=== PATIENT | male | born 1980 | race Caucasian/White ===

== ENCOUNTER 2017-01-14 20:11 | Emergency (ER) | payer BC ==
[2017-01-14] MEDS ORDERED: Acetaminophen/oxyCODONE 325-5 MG Tab PO ONE (20:35)
--- NOTE | 2017-01-14 21:49 | EDM.PDOC ---
ED HPI GENERAL MEDICAL PROBLEM - General Chief Complaint: General Stated Complaint: Left thumb injury Time Seen by Provider: 01/14/17 20:13 Source of Information: Reports: Patient History Limitations: Reports: No Limitations - History of Present Illness INITIAL COMMENTS - FREE TEXT/NARRATIVE: Patient was using axe when he somehow managed to make contact with dorsal aspect of left thumb when axe slipped. Denies numbness/tingling or loss of function. Able to flex and extend all fingers of left hand. Wrist is fully mobile. Has very mild superficial laceration medial proximal index finger where axe also made contact. Denies other injuries. Tetanus is UTD. Patient placed series of bandages around wound to help with bleeding. Location: Reports: Upper Extremity, Left Left 1-Thumb Pain Score (Numeric/FACES): 9 - Related Data Allergies Allergy/AdvReac Type Severity Reaction Status Date / Time No Known Allergies Allergy Verified 04/18/16 22:05 Past Medical History - Past Health History Medical/Surgical History: Denies Medical/Surgical History Psychiatric History: Reports: Addiction, Anxiety, Depression, Other (See Below) Other Psychiatric History: pt states takes effexor but will not state why he takes med, very aggitated at this time Social & Family History - Family History Family Medical History: Noncontributory - Tobacco Use Smoking Status *Q: Current Every Day Smoker Years of Tobacco use: 5 Packs/Tins Daily: 0.5 Second Hand Smoke Exposure: No - Caffeine Use Caffeine Use: Reports: Soda - Alcohol Use Alcohol Use Comment: Currently abstaining from alcohol. Denies use. - Recreational Drug Use Recreational Drug Use: No Recreational Drug Type: Reports: Other (see below) Other Recreational Drug Type: hydrocodone and gabapentin ED ROS GENERAL - Review of Systems Review Of Systems: ROS reveals no pertinent complaints other than HPI. ED EXAM, GENERAL - Physical Exam Exam: See Below Exam Limited By: No Limitations General Appearance: Alert, WD/WN, No Apparent Distress Eye Exam: Bilateral Eye: EOMI, PERRL Head: Atraumatic, Normocephalic Neck: Supple Respiratory/Chest: No Respiratory Distress Peripheral Pulses: 2+: Radial (L), Radial (R) Extremities: Normal Capillary Refill, Other (laceration noted dorsal left thumb base.) Neurological: Alert, Oriented, Normal Cognition, Normal Gait, No Motor/Sensory Deficits Psychiatric: Anxious Skin Exam: Warm, Dry, Other (3cm laceration dorsal left thumb full thickness. No active bleeding noted. No hematoma. Very superficial 3cm laceration medial index finger noted also. Full tendon function. Sensation intact. ) ED GENERAL MEDICAL PROCEDURES - Laceration/Wound Repair Left Proximal Dorsal Finger Lac/wound length in cm: 3 Appearance: Subcutaneous, Linear, Clean Distal NVT: Neuro & Vascular Intact, No Tendon Injury Anesthetic Type: Local Local Anesthesia - Lidocaine (Xylocaine): 1% Plain Local Anesthetic Volume: 4cc Skin Prep: Saline Exploration/Debridement/Repair: Wound Explored, Explored to Base, No Foreign Material Found, Other (minor small vessel oozing noted) Closed with: Sutures Suture Size: 3-0 # of Sutures: 4 Suture Type: Nylon, Interrupted Sterile Dressing Applied: Nurse Tetanus Status Addressed: Yes Complications: No Course - Vital Signs Last Recorded V/S: Last Vital Signs Temp 37.1 C 01/14/17 20:20 Pulse 120 H 01/14/17 22:00 Resp 20 01/14/17 22:00 BP 136/89 01/14/17 22:00 Pulse Ox 100 01/14/17 22:00 - Orders/Labs/Meds Orders: Active Orders 24 hr Category Date Time Status Hand Comp Min 3V Lt [CR] Stat Exams 01/14/17 20:14 Taken Meds: Medications Discontinued Medications Generic Name Dose Route Start Last Admin Trade Name Amy PRN Reason Stop Dose Admin Lidocaine HCl Confirm 01/14/17 21:14 Xylocaine-Mpf 1% Administered 01/14/17 21:15 Dose 10 ml .ROUTE .STK-MED ONE Oxycodone/Acetaminophen 2 tab 01/14/17 20:35 01/14/17 20:40 Percocet 325-5 Mg PO 01/14/17 20:36 2 tab ONETIME ONE Administration - Radiology Interpretation Free Text/Narrative:: xray left hand showed no obvious bony involvement with injury - Re-Assessments/Exams Free Text/Narrative Re-Assessment/Exam: 01/14/17 21:54 Patient very anxious when he first arrived. Elevated pulse, RR, BP noted. Laceration repaired. Pressure bandage applied. PO Percocet given earlier in stay. Will give patient work excuse for [employer] tonight. He is to follow up as needed if there are any problems, otherwise sutures to be removed in one week. Precautions reviewed prior to discharge. Patient was told he would need ride home due to Percocet that was given. He said his would be available. Free Text/Narrative Re-Assessment/Exam: 01/14/17 22:09 Vital signs rechecked. Pulse still elevated. BP and RR improved. Patient volunteered that he has been having some baseline issues with anxiety/ depression recently and has appointment to see Davidson Aguilera on Saturday for this. Given his injury and trip to the ER, suspect that it is part of the reason that these things were elevated tonight. Discussed having his vital signs taken a few times over the next few weeks to look for trends, and to discuss planning with Davidson this week. Departure - Departure Time of Disposition: 22:05 Disposition: Home, Self-Care 01 Condition: Good Clinical Impression: Anxiety Hand laceration Qualifiers: Encounter type: initial encounter Foreign body presence: without foreign body Laterality: left Qualified Code(s): S61.412A - Laceration without foreign body of left hand, initial encounter - Discharge Information Instructions: Laceration Care, Adult, [id number] Referrals: Davidson Aguilera PA [Primary Care Provider] - Forms: ED Department Discharge Additional Instructions: Keep wound clean and dry while it heals. OK to use topical antibiotic ointment several times a day to help avoid infection. Follow up for suture removal next Saturday. Follow up otherwise if you have other problems, such as bleeding or signs of infection. OK to use Tylenol or Ibuprofen or Aleve for pain. Have BP/pulse rechecked on Saturday when you are at your appointment with your primary provide.r - My Orders Last 24 Hours: My Active Orders 01/14/17 20:14 Hand Comp Min 3V Lt [CR] Stat - Assessment/Plan Last 24 Hours: My Active Orders 01/14/17 20:14 Hand Comp Min 3V Lt [CR] Stat
[2017-01-14 22:01] VITALS: BP 136/89
== END 2017-01-14 22:15 | disposition home or self-care (01) ==
LOC: LL.ED 20:11
DX: S61.012A Laceration without foreign body of left thumb without damage to nail, initial encounter (principal); S61.211A Laceration without foreign body of left index finger without damage to nail, initial encounter; F41.9 Anxiety disorder, unspecified; F17.210 Nicotine dependence, cigarettes, uncomplicated; W26.8XXA Contact with other sharp object(s), not elsewhere classified, initial encounter
CPT/HCPCS: 12002; 73130; 99283; A9270

== ENCOUNTER 2017-07-16 03:25 | Emergency (ER) | payer BC ==
[2017-07-16 06:32] LABS: CHLORIDE,CL 102 mmol/L (98-107); SODIUM,NA 139 mmol/L (136-145)
--- NOTE | 2017-07-16 09:45 | EDM.PDOC ---
ED HPI GENERAL MEDICAL PROBLEM - General Chief Complaint: Neurological Problem Stated Complaint: confusion Time Seen by Provider: 07/16/17 03:45 Source of Information: Reports: Patient, Family (, Ivette), Old Records ( [facility] chart/EMR) History Limitations: Reports: Altered Mental Status - History of Present Illness INITIAL COMMENTS - FREE TEXT/NARRATIVE: The patient was brought to the emergency room via transport vehicle from [facility] for evaluation of nonspecific confusion with symptoms starting at about midnight this evening. The patient is an extremely poor historian secondary to his current confusion and probable psychosis with majority of history taken from Georgi Taylor, industrial safety and health technician from [facility], Randal Lundy, shift boss , and Lance Montanez, security attendant from [facility]. By patient history last well normal mental status at about 21:00 hours this evening. 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 His coworkers and supervisors could not find the patient till about 3 AM. Patient does complain of nonspecific left 2/10 temporal and frontal headaches with questionable history of minor fall with possible mild left hip and head contusion, however patient is not certain of this event. He apparently had similar type symptoms about one year ago with history of previous inpatient treatment for substance abuse as below. The patient has also been noncompliant with his Effexor and has been taking this only on a when necessary basis. He denies any recent alcohol or illicit drug use, although he has had some increasing stressors at home and is afraid that his may leave him. No history of recent visual changes, diplopia, or other change in neurological status. The patient denies any chest pain/pressure, heart flutter, dizziness, orthostasis, orthopnea, diaphoresis, paresthesias, recent decreased exercise tolerance, or any other anginal-type symptoms. No recent history of abdominal pain, heartburn, nausea, diarrhea, melena, gross hematochezia, or any food intolerance, including fatty foods, etc.. The patient also denies any recent fever, cough, wheezing, dyspnea, etc.. He also denies any recent history of UTI symptoms, hematuria, colic, etc. Onset: Gradual Onset Date: 07/15/17 Onset Time: 21:00 Duration: Constant, Improving Location: Reports: Head, Lower Extremity, Left. Denies: Face, Neck, Chest, Abdomen, Back, Pelvis, Upper Extremity, Left, Upper Extremity, Right, Lower Extremity, Right, Radiates to Quality: Reports: Ache, Same as Previous Episode Severity: Mild Improves with: Reports: None Worsens with: Reports: None Context: Reports: Other (As above) Associated Symptoms: Reports: Confusion. Denies: Chest Pain, Cough, Diaphoresis , Fever/Chills, Headaches, Loss of Appetite, Malaise, Nausea/Vomiting, Seizure, Shortness of Breath, Syncope, Weakness Treatments STRATEGIC PROCUREMENT MANAGER: Reports: Other (see below) (None) Left Headache Pain Score (Numeric/FACES): 2 - Related Data Allergies Allergy/AdvReac Type Severity Reaction Status Date / Time No Known Allergies Allergy Verified 04/18/16 22:05 Past Medical History Musculoskeletal History: Reports: Fracture, Other (See Below) Other Musculoskeletal History: Tuft fracture of digit #4 of the left hand on 06/27 Psychiatric History: Reports: Addiction, Anxiety, Depression, Emotional Problems , Psych Hospitalization(s), Other (See Below) Other Psychiatric History: Previous history of alcohol, Ativan, and Xanax abuse as below. History of alcohol abuse since 2002 with apparent previous treatments including last known inpatient treatment for alcohol abuse and his anxiety depressive disorder at [facility] in the fall of 2016. Previous problems with anger management. Social & Family History - Family History Family Medical History: Noncontributory - Tobacco Use Smoking Status *Q: Current Every Day Smoker Tobacco Use Within Last Twelve Months: Snuff/Dip Years of Tobacco use: 21 Packs/Tins Daily: 0.5 Packs/Tins Daily Comment: Started using chewing tobacco at age 16 with only occasional cigarette use when drinking Used Tobacco, but Quit: No - Caffeine Use Caffeine Use: Reports: Soda - Alcohol Use Alcohol Use History: Yes Days Per Week of Alcohol Use: 0 Number of Drinks Per Day Comment: History of alcohol abuse and treatment as above Alcohol Use in Last Twelve Months: Yes - Recreational Drug Use Recreational Drug Use: Yes Drug Use in Last 12 Months: No Recreational Drug Type: Reports: Ativan, Xanax. 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 ED EXAM, GENERAL - Physical Exam Exam: See Below Exam Limited By: No Limitations General Appearance: Alert, No Apparent Distress, Anxious (Moderate to severe anxiety initially on arrival by nurses history with only mild anxiety present at time of my arrival) Eye Exam: Bilateral Eye: EOMI, Normal Fundi, Normal Inspection (No nystagmus), Periorbital Changes Ears: Normal External Exam, Normal Canal, Hearing Grossly Normal, Normal TMs Nose: Normal Inspection, Normal Mucosa, No Blood Throat/Mouth: Normal Inspection, Normal Lips, Normal Teeth, Normal Gums, Normal Oropharynx, Normal Voice, No Airway Compromise. No: Dysphagia, Perioral Cyanosis Head: Atraumatic, Normocephalic. No: Facial Swelling, Facial Tenderness ( Including left temporal region), Sinus Tenderness Neck: Normal Inspection, Supple, Non-Tender, Full Range of Motion. No: Lymphadenopathy (L), Lymphadenopathy (R), Thyromegaly Respiratory/Chest: No Respiratory Distress, Lungs Clear, Normal Breath Sounds, No Accessory Muscle Use, Chest Non-Tender. No: Pleural Rub, Retractions Cardiovascular: Normal Peripheral Pulses, Regular Rate, Rhythm, No Edema, No Gallop, No JVD, No Murmur, No Rub. No: Gallop/S3, Gallop/S4, Friction Rub Peripheral Pulses: 2+: Radial (L), Radial (R) GI/Abdominal: Normal Bowel Sounds, Soft, Non-Tender, No Organomegaly, No Distention, No Abnormal Bruit, No Mass, Pelvis Stable. No: Guarding (Male) Exam: Deferred Rectal (Males) Exam: Deferred Back Exam: Normal Inspection, Full Range of Motion. No: CVA Tenderness (L), CVA Tenderness (R), Muscle Spasm Extremities: Normal Inspection, Normal Range of Motion, Non-Tender, No Pedal Edema, Normal Capillary Refill. No: Edmond's Sign, Leg Pain (Including left hip) Neurological: Alert, CN II-XII Intact, Normal Cognition, Normal Gait, Normal Reflexes (Negative Babinski's, finger to nose, and pronator rotation tests. No evidence of facial paresis, tongue deviation, orthostasis, etc.. Excellent reverse thought processes.), No Motor/Sensory Deficits, Confused (Slowly improving during emergency room evaluation moderate confusion and borderline psychosis), Disoriented (Oriented 2 with date inaccurate at 07/13/17) Psychiatric: Anxious (Moderate as above), Depressed Mood (Moderate with adequate eye contact and no evidence of suicidal or homicidal ideation). No: Flat Affect, Tearful Skin Exam: Warm, Dry, Intact, Normal Color, No Rash. No: Diaphoretic, Jaundice , Pallor, Wound/Incision Lymphatic: No Adenopathy Course - Vital Signs Last Recorded V/S: See written emergency room record - Orders/Labs/Meds Orders: Active Orders 24 hr Category Date Time Status Head wo Cont [CT] Routine Exams 07/16/17 04:00 Taken CULTURE URINE [RM] Stat Lab 07/16/17 04:15 Received Labs: Laboratory Tests 07/16/17 07/16/17 07/16/17 Range/Units 04:15 04:15 04:15 WBC 9.8 (4.0-10.2) K/uL RBC 4.62 (4.33-5.41) M/uL Hgb 14.9 D (13.1-16.8) g/dL Hct 44.0 (39.0-49.0) % MCV 95.2 (84.0-98.0) fL MCH 32.3 (28.2-33.3) pg MCHC 33.9 (31.7-36.0) g/dL RDW 12.2 (11.2-14.1) % Plt Count 266 D (150-350) K/uL Neut % (Auto) 72.5 (45.0-80.0) % Lymph % (Auto) 17.9 (10.0-50.0) % [place] % (Auto) 8.8 (2.0-14.0) % Eos % (Auto) 0.5 (0.0-5.0) % Baso % (Auto) 0.3 (0.0-2.0) % Neut # (Auto) 7.08 H (1.40-7.00) K/uL Lymph # (Auto) 1.75 (0.50-3.50) K/uL [place] # (Auto) 0.86 (0.00-1.00) K/uL Eos # (Auto) 0.05 (0.00-0.50) K/uL Baso # (Auto) 0.03 (0.00-0.20) K/uL Sodium 139 (136-145) mmol/L Potassium 3.6 (3.5-5.1) mmol/L Chloride 102 (98-107) mmol/L Carbon Dioxide 26.6 (21.0-32.0) mmol/L BUN 10 (7-18) mg/dL Creatinine 1.05 (0.51-1.17) mg/dL Est Cr Clr Drug Dosing TNP Estimated GFR (MDRD) > 60 mL/min Glucose 108 H (74-106) mg/dL Lactic Acid 0.6 (0.4-2.0) mmol/L Calcium 9.2 (8.5-10.1) mg/dL Total Bilirubin 0.5 (0.2-1.0) mg/dL AST 26 (15-37) U/L ALT 42 (12-78) U/L Alkaline Phosphatase 78 (46-116) IU/L Total Protein 8.4 H (6.4-8.2) g/dL Albumin 4.5 (3.4-5.0) g/dL TSH, Ultra Sensitive 4.445 H (0.358-3.740) mIU/mL Specimen Type Urine Color Urine Appearance Urine pH (5.0-9.0) Ur Specific [place] (1.005-1.030) Urine Protein (NEGATIVE) mg/dL Urine Glucose (UA) (NEGATIVE) mg/dL Urine Ketones (NEGATIVE) mg/dL Urine Occult Blood (NEGATIVE) Urine Nitrite (NEGATIVE) Urine Bilirubin (NEGATIVE) Urine Urobilinogen (0.2-1.0) E.U./dL Ur Leukocyte Esterase (NEGATIVE) Urine RBC /HPF Urine WBC /HPF Ur Epithelial Cells /LPF Urine Bacteria (NONE TO FEW) /HPF Urine Opiates Screen (NEGATIVE) Urine Methadone Screen (NEGATIVE) U Acetaminophen Screen (NEGATIVE) Ur Barbiturates Screen (NEGATIVE) Ur Tricyclics Screen (NEGATIVE) Ur Phencyclidine Scrn (NEGATIVE) Ur Amphetamine Screen (NEGATIVE) U Methamphetamines Scrn (NEGATIVE) U Benzodiazepines Scrn (NEGATIVE) U Cocaine Metab Screen (NEGATIVE) U Marijuana (THC) Screen (NEGATIVE) Ethyl Alcohol 0.000 (0.000-0.080) g/dL 07/16/17 07/16/17 Range/Units 04:15 04:15 WBC (4.0-10.2) K/uL RBC (4.33-5.41) M/uL Hgb (13.1-16.8) g/dL Hct (39.0-49.0) % MCV (84.0-98.0) fL MCH (28.2-33.3) pg MCHC (31.7-36.0) g/dL RDW (11.2-14.1) % Plt Count (150-350) K/uL Neut % (Auto) (45.0-80.0) % Lymph % (Auto) (10.0-50.0) % [place] % (Auto) (2.0-14.0) % Eos % (Auto) (0.0-5.0) % Baso % (Auto) (0.0-2.0) % Neut # (Auto) (1.40-7.00) K/uL Lymph # (Auto) (0.50-3.50) K/uL [place] # (Auto) (0.00-1.00) K/uL Eos # (Auto) (0.00-0.50) K/uL Baso # (Auto) (0.00-0.20) K/uL Sodium (136-145) mmol/L Potassium (3.5-5.1) mmol/L Chloride (98-107) mmol/L Carbon Dioxide (21.0-32.0) mmol/L BUN (7-18) mg/dL Creatinine (0.51-1.17) mg/dL Est Cr Clr Drug Dosing Estimated GFR (MDRD) mL/min Glucose (74-106) mg/dL Lactic Acid (0.4-2.0) mmol/L Calcium (8.5-10.1) mg/dL Total Bilirubin (0.2-1.0) mg/dL AST (15-37) U/L ALT (12-78) U/L Alkaline Phosphatase (46-116) IU/L Total Protein (6.4-8.2) g/dL Albumin (3.4-5.0) g/dL TSH, Ultra Sensitive (0.358-3.740) mIU/mL Specimen Type Urinvoid Urine Color Yellow Urine Appearance Clear Urine pH 5.5 (5.0-9.0) Ur Specific [place] 1.010 (1.005-1.030) Urine Protein Negative (NEGATIVE) mg/dL Urine Glucose (UA) Negative (NEGATIVE) mg/dL Urine Ketones Negative (NEGATIVE) mg/dL Urine Occult Blood Negative (NEGATIVE) Urine Nitrite Negative (NEGATIVE) Urine Bilirubin Negative (NEGATIVE) Urine Urobilinogen 0.2 (0.2-1.0) E.U./dL Ur Leukocyte Esterase Negative (NEGATIVE) Urine RBC 0-5 /HPF Urine WBC Not seen /HPF Ur Epithelial Cells Rare /LPF Urine Bacteria Rare (NONE TO FEW) /HPF Urine Opiates Screen Negative (NEGATIVE) Urine Methadone Screen Negative (NEGATIVE) U Acetaminophen Screen Negative (NEGATIVE) Ur Barbiturates Screen Negative (NEGATIVE) Ur Tricyclics Screen Negative (NEGATIVE) Ur Phencyclidine Scrn Negative (NEGATIVE) Ur Amphetamine Screen Negative (NEGATIVE) U Methamphetamines Scrn Negative (NEGATIVE) U Benzodiazepines Scrn Negative (NEGATIVE) U Cocaine Metab Screen Negative (NEGATIVE) U Marijuana (THC) Screen Negative (NEGATIVE) Ethyl Alcohol (0.000-0.080) g/dL Urine specimen set up for culture and sensitivity Meds: None - Radiology Interpretation Free Text/Narrative:: CT scan of the head, written report, shows no gross abnormalities or acute changes. Preliminary verbal report not received despite request. Departure - Departure Time of Disposition: 05:50 Disposition: Home, Self-Care 01 Condition: Fair Clinical Impression: Mixed anxiety depressive disorder, Hypothyroidism (acquired), Tobacco abuse counseling Psychosis Qualifiers: Psychosis type: unspecified psychosis type Qualified Code(s): F29 - Unspecified psychosis not due to a substance or known physiological condition - Discharge Information Referrals: Davidson Aguilera PA [Primary Care Provider] - Forms: ED Department Discharge Additional Instructions: See written emergency room record/discharge orders - Problem List & Annotations (1) Psychosis SNOMED Code(s): 82188383 Code(s): F29 - UNSP PSYCHOSIS NOT DUE TO A SUBSTANCE OR KNOWN PHYSIOL COND Status: Acute Priority: High Onset Date: ~07/15/17 Annotation/Comment:: Newly diagnosed psychosis possible secondary to Neurontin toxicity. Patient states that he is taking this medication per advice from his psychiatrist for anger management and mood control? Various therapeutic options were discussed with the patient and his , including immediate telephone consultation with her shortly after the patient's arrival to the emergency room. The patient does not wish to be hospitalized for observation or psychiatric care at this time. They do agree to contact the patient's psychiatrist DMITRY later this morning for recommended evaluation and medication adjustment, including possible decrease of his current Neurontin, reinitiation of his Effexor, further counseling versus inpatient psychiatric care, etc. Note that current Neurontin dose was confirmed with the patient's actual prescription bottle, which the patient's brought to the emergency room prior to picking him up. Emotional support provided. Work excuse/[employer] form completed for the patient with the given an additional work excuse so that she can continue to observe him on a 24-hour per day basis until otherwise directed by his psychiatrist and/or regular provider. He is not to return to work until released by these providers. Recommend additional follow-up with his regular provider tomorrow, if he is not admitted to the hospital. Qualifiers: Psychosis type: unspecified psychosis type Qualified Code(s): F29 - Unspecified psychosis not due to a substance or known physiological condition (2) Mixed anxiety depressive disorder SNOMED Code(s): 954096042 Code(s): F41.8 - OTHER SPECIFIED ANXIETY DISORDERS Status: Chronic Priority: Medium Annotation/Comment:: Poor control based on today's exam with complete assessment difficult secondary to his current newly diagnosed psychosis as above. Medication compliance strongly encouraged the patient not to stop medications on his own. He is currently taking Effexor on a when necessary basis. Medication adjustments as above. (3) Alcohol abuse SNOMED Code(s): 34919562 Code(s): F10.10 - ALCOHOL ABUSE, UNCOMPLICATED Status: Chronic Priority: Medium Annotation/Comment:: Previous history of alcohol and axiolytic drug abuse as above. Normal drug screen and alcohol level today. No direct evidence of alcohol-induced encephalopathy, however consider workup in the future depending on his clinical course. (4) Hypothyroidism (acquired) SNOMED Code(s): 570658018 Code(s): E03.9 - HYPOTHYROIDISM, UNSPECIFIED Status: Acute Priority: Medium Onset Date: 07/16/17 Annotation/Comment:: Newly diagnosed today with no thyroid type symptoms with current TSH level not explaining patient's current mental status. Recommend initiation of Synthroid therapy through his regular physician as per discharge orders. Recommend repeat TSH in 4 weeks (5) Tobacco abuse counseling SNOMED Code(s): 879767206, [id number], 812265261 Code(s): Z71.6 - TOBACCO ABUSE COUNSELING Status: Chronic Priority: Medium Annotation/Comment:: Stop all tobacco use DMITRY as directed/per provided information and consider contacting Quit [facility]ne, etc.. - Problem List Review Problem List Initiated/Reviewed/Updated: Yes - My Orders Last 24 Hours: My Active Orders 07/16/17 04:00 Head wo Cont [CT] Routine 07/16/17 04:15 CULTURE URINE [RM] Stat - Assessment/Plan Last 24 Hours: My Active Orders 07/16/17 04:00 Head wo Cont [CT] Routine 07/16/17 04:15 CULTURE URINE [RM] Stat Assessment:: As above Plan: As above. Extensive precautions were given to the patient and his , who are in agreement with the treatment plan. See Patient Instructions for further treatment and plan.
== END 2017-07-16 05:50 | disposition home or self-care (01) ==
LOC: LL.ED 03:25
DX: F29 Unspecified psychosis not due to a substance or known physiological condition (principal); F41.8 Other specified anxiety disorders; E03.9 Hypothyroidism, unspecified; Z71.6 Tobacco abuse counseling; F17.210 Nicotine dependence, cigarettes, uncomplicated
CPT/HCPCS: 36415; 70450; 80053; 80305; 81001; 83605; 84443; 85025; 87086; 99284; G0480

== ENCOUNTER 2018-08-15 00:21 | Emergency (ER) | payer BC, OTHER, SELFPAY ==
[2018-08-15 00:29] VITALS: BP 147/62
[2018-08-15] MEDS ORDERED: Bacitracin/Neomycin/Polymyxin B Oint 0.9 GM U/D Packet TOP ONE (00:43)
[2018-08-15] MEDS ORDERED: Diphtheria,Pertussis(Acell),Tetanus Vaccine 0.5 ML SDV IM ONE (00:43)
--- NOTE | 2018-08-15 00:43 | EDM.PDOC ---
ED HPI GENERAL MEDICAL PROBLEM - General Chief Complaint: Laceration Stated Complaint: laceration Time Seen by Provider: 08/15/18 00:35 Source of Information: Reports: Patient, Old Records ([facility] chart/EMR) History Limitations: Reports: No Limitations - History of Present Illness INITIAL COMMENTS - FREE TEXT/NARRATIVE: The patient was brought to the emergency room via transport vehicle from [facility] for evaluation of a Workmen's Compensation injury, which occurred at 23:50 hours this evening. The patient was working with a slip bar, which slipped and hit his nose. A dressing was placed prior to arrival with no medications to this point. He has not injured his nose in the past. He does not know when he had his last tetanus booster. No significant epistaxis or history of fall, headaches, visual changes, nausea, emesis, exacerbation of his chronic neck pain , paresthesias, neurological deficits, dental pain, or other complaints or injuries. No recent history of abdominal pain, heartburn, nausea, diarrhea, melena, gross hematochezia, or any food intolerance, including fatty foods, etc.. The patient also denies any recent fever, cough, wheezing, dyspnea, etc.. He denies any pain or discomfort. 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 Denies: Allergic Rhinitis, Cataract, Glaucoma, Hard of Hearing, Impaired Vision, Macular Degeneration Cardiovascular History: Reports: None. Denies: Heart Murmur, High Cholesterol, Hypertension Gastrointestinal History: Reports: GERD Musculoskeletal History: Reports: Arthritis, Back Pain, Chronic, Fracture, Neck Pain, Chronic, Osteoarthritis, Other (See Below) Other Musculoskeletal History: Tuft fracture of digit #4 of the left hand on 06/27 Psychiatric History: Reports: Addiction, Anxiety, Depression, Emotional Problems , Psych Hospitalization(s), Other (See Below) Other Psychiatric History: Previous history of alcohol, Ativan, and Xanax abuse as below. History of alcohol abuse since 2002 with apparent previous treatments including last known inpatient treatment for alcohol abuse and his anxiety depressive disorder at [facility] in the fall of 2017. Previous problems with anger management. Endocrine/Metabolic History: Reports: Hypothyroidism Social & Family History - Family History Family Medical History: Noncontributory - Tobacco Use Smoking Status *Q: Current Every Day Smoker Tobacco Use Within Last Twelve Months: Snuff/Dip Years of Tobacco use: 12 Packs/Tins Daily: 0.3 Packs/Tins Daily Comment: Started chewing tobacco use at age 16 Used Tobacco, but Quit: No Smoking Cessation Information Provided To Patient: Yes Second Hand Smoke Exposure: No Second Hand Smoke Education Provided: No - Caffeine Use Caffeine Use: Reports: Soda - Living Situation & Occupation Living situation: Reports: (12/04/2009, 2 children), with Family 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 ED EXAM, SKIN/RASH Exam: See Below Exam Limited By: No Limitations General Appearance: Alert, WD/WN, No Apparent Distress Eye Exam: Bilateral Eye: EOMI, Normal Fundi, Normal Inspection (No nystagmus), PERRL Ears: Normal External Exam, Normal Canal, Hearing Grossly Normal, Normal TMs Nose: Nasal Tenderness (Minimal at laceration site), Other (Minimal 1.5 cm superficial laceration over the mid right lateral nasal surface not requiring surgical repair. No crepitation or sign of fracture.). No: Nasal Deformity, Nasal Swelling, Nasal Drainage, Clear Rhinorrhea Throat/Mouth: Normal Inspection, Normal Lips, Normal Teeth, Normal Gums, Normal Oropharynx, Normal Voice, No Airway Compromise. No: Dysphagia, Perioral Cyanosis Head: Atraumatic, Normocephalic. No: Facial Swelling, Facial Tenderness, Sinus Tenderness Neck: Normal Inspection, Supple, Non-Tender, Full Range of Motion. No: Lymphadenopathy (L), Lymphadenopathy (R), Thyromegaly Respiratory/Chest: No Respiratory Distress, Lungs Clear, Normal Breath Sounds, No Accessory Muscle Use, Chest Non-Tender. No: Pleural Rub, Retractions Cardiovascular: Normal Peripheral Pulses, Regular Rate, Rhythm, No Edema, No Gallop, No JVD, No Murmur, No Rub. No: Gallop/S3, Gallop/S4, Friction Rub Peripheral Pulses: 2+: Radial (L), Radial (R) GI/Abdominal: Normal Bowel Sounds, Soft, Non-Tender, No Organomegaly, No Distention, No Abnormal Bruit, No Mass, Pelvis Stable. No: Guarding (Male) Exam: Deferred Rectal (Males) Exam: Deferred Back Exam: Normal Inspection, Full Range of Motion. No: CVA Tenderness (L), CVA Tenderness (R), Muscle Spasm Extremities: Normal Inspection, Normal Range of Motion, Non-Tender, No Pedal Edema, Normal Capillary Refill. No: Edmond's Sign Neurological: Alert, Oriented, CN II-XII Intact, Normal Cognition, Normal Gait, No Motor/Sensory Deficits Psychiatric: Normal Affect Skin: Warm, Normal Color, No Rash, Wound/Incision (As above with no evidence of foreign body). No: Diaphoretic Location, Skin: Face. No: Head, Neck Characteristics: Other (As above) Associated features: Tenderness (As above) Lymphatic: No Adenopathy Course - Vital Signs Last Recorded V/S: Last Vital Signs Temp 36.9 C 08/15/18 00:28 Pulse 85 08/15/18 00:28 Resp 15 08/15/18 00:28 BP 147/62 H 08/15/18 00:28 Pulse Ox 99 08/15/18 00:28 Vital Signs - 24 hr 08/15/18 00:28 Temperature [ 36.9 C Temporal] Pulse, 85 Peripheral [ Right Pulse Oximetry] Respiratory 15 Rate Blood Pressure 147/62 H [Right Upper Arm] O2 Sat by Pulse 99 Oximetry - Orders/Labs/Meds Orders: Active Orders 24 hr Category Date Time Status Vaccines to be Administered [RC] PER UNIT ROUTINE Care 08/15/18 00:43 Active Nasal Bone Min 3V [CR] Stat Exams 08/15/18 00:46 Taken Obtain Past Medical Record [OM.PC] Routine Oth 08/15/18 00:43 Active Labs: None Meds: Medications Discontinued Medications Generic Name Dose Route Start Last Admin Trade Name Amy PRN Reason Stop Dose Admin Diphtheria/Tetanus/Acell Pertussis 0.5 ml 08/15/18 00:43 08/15/18 00:49 Adacel IM 08/15/18 00:44 0.5 ml .ONCE ONE Administration Neomycin/Polymyxin/Bacitracin 1 each 08/15/18 00:43 08/15/18 00:50 Triple Antibiotic Oint TOP 08/15/18 00:44 1 each ONETIME ONE Administration - Radiology Interpretation Free Text/Narrative:: X-ray of the nasal bones, complete, shows no evidence of fracture, foreign body , dislocation, etc. Mild nasal septum deviation to the right. Departure - Departure Time of Disposition: 01:05 Disposition: Home, Self-Care 01 Condition: Good Clinical Impression: Laceration, Tobacco abuse counseling, Mixed anxiety depressive disorder, Hypothyroidism (acquired) - Discharge Information *PRESCRIPTION DRUG MONITORING PROGRAM REVIEWED*: Not Applicable *COPY OF PRESCRIPTION DRUG MONITORING REPORT IN PATIENT CHARMAINE: Not Applicable Instructions: Laceration Care, Adult, [id number], Smokeless Tobacco Information, Adult Referrals: Davidson Aguilera PA [Primary Care Provider] - Forms: ED Department Discharge Additional Instructions: 1. Follow up with your regular provider in 10-14 days as needed, if symptoms persist. Bring these discharge instructions with you to that visit.. 2. Antibacterial soap wash/soak with subsequent antibacterial dressing such as Neosporin, etc. as directed 2 times per day until the wound or laceration site completely heals. Keep the area clean and dry with activity restrictions as discussed. Never use hydrogen peroxide for wound care. 3. Tylenol 650 mg by mouth every 4 hours and/or OTC ibuprofen 2-3 tabs by mouth every 6 hours with food as directed./needed. You may stagger these medications for 48-72 hours only, which essentially means that you are receiving a pain medication about every 2 hours. 4. Work excuse- See Form 5. Stop all tobacco use DMITRY as directed/per provided information and consider contacting Quit LIne, etc.. 6. Immediately after this visit verify that your cellular telephone's voicemail has been activated and is empty. Also verify that your home telephone 's answering machine is operating properly and has space to receive messages. Note that it is sometimes necessary for us to be able to contact you at a later date to discuss your medical care. 7. Please remember that we are ALWAYS here for you and want to answer any questions you may have. Feel free to call the hospital any time and we call you back DMITRY. - Problem List & Annotations (1) Laceration SNOMED Code(s): 841655404 Code(s): SOC5776 - Status: Acute Priority: High Onset Date: 08/14/18 Annotation/Comment:: Laceration not needed repair. Neosporin dressing placed by the nurse. DTaP given. Patient does not know his last tetanus booster. Wound care, etc. discussed. Workmen's Compensation and [employer] work excuse forms were completed. (2) Osteoarthritis SNOMED Code(s): 483415407 Code(s): M19.90 - UNSPECIFIED OSTEOARTHRITIS, UNSPECIFIED SITE Status: Chronic Priority: Medium Annotation/Comment:: Stable by history Qualifiers: Osteoarthritis location: multiple joints Osteoarthritis type: primary Qualified Code(s): M15.0 - Primary generalized (osteo)arthritis (3) Mixed anxiety depressive disorder SNOMED Code(s): 479515121 Code(s): F41.8 - OTHER SPECIFIED ANXIETY DISORDERS Status: Chronic Priority: Medium Annotation/Comment:: Stable by history under current medical therapy. Note history of alcohol abuse in the past as above with no evidence of intoxication today. (4) Hypothyroidism (acquired) SNOMED Code(s): 513415080 Code(s): E03.9 - HYPOTHYROIDISM, UNSPECIFIED Status: Acute Priority: Medium Onset Date: 07/16/17 Annotation/Comment:: No current medical therapy with patient not aware of this diagnosis despite my ER evaluation with him on with only mildly elevated TSH at that time. No apparent follow-up as previously recommended. Continue to observe closely by his regular provider. (5) Tobacco abuse counseling SNOMED Code(s): 045540449, 296923928, 320692090 Code(s): Z71.6 - TOBACCO ABUSE COUNSELING Status: Chronic Priority: Medium Annotation/Comment:: Tobacco cessation once again strongly encouraged with patient counseled on the use of Nicorette gum. Stop all tobacco use DMITRY as directed/per provided information and consider contacting Quit LIne, etc.. - Problem List Review Problem List Initiated/Reviewed/Updated: Yes - My Orders Last 24 Hours: My Active Orders 08/15/18 00:43 Vaccines to be Administered [RC] PER UNIT ROUTINE Obtain Past Medical Record [OM.PC] Routine 08/15/18 00:46 Nasal Bone Min 3V [CR] Stat - Assessment/Plan Last 24 Hours: My Active Orders 08/15/18 00:43 Vaccines to be Administered [RC] PER UNIT ROUTINE Obtain Past Medical Record [OM.PC] Routine 08/15/18 00:46 Nasal Bone Min 3V [CR] Stat Assessment:: As above Plan: As above. Extensive precautions were given to the patient, who is in agreement with the treatment plan. See Patient Instructions for further treatment and plan.
== END 2018-08-15 01:00 | disposition home or self-care (01) ==
LOC: LL.ED 00:21
DX: S01.21XA Laceration without foreign body of nose, initial encounter (principal); F41.8 Other specified anxiety disorders; E03.9 Hypothyroidism, unspecified; Z23 Encounter for immunization; Z71.6 Tobacco abuse counseling; F17.210 Nicotine dependence, cigarettes, uncomplicated; W01.198A Fall on same level from slipping, tripping and stumbling with subsequent striking against other object, initial encounter
CPT/HCPCS: 70160; 90471; 90715; 99283-25

== ENCOUNTER 2019-02-03 19:55 | Emergency (ER) | payer OTHER ==
--- NOTE | 2019-02-03 20:27 | EDM.PDOC ---
ED HPI GENERAL MEDICAL PROBLEM - General Chief Complaint: Laceration Stated Complaint: laceration Time Seen by Provider: 02/03/19 20:15 Source of Information: Reports: Patient, Old Records ([facility] chart/EMR) History Limitations: Reports: No Limitations - History of Present Illness INITIAL COMMENTS - FREE TEXT/NARRATIVE: Patient was brought to the emergency room via transport vehicle from [facility] for evaluation of a Workmen's Compensation injury, which occurred at about 19:00 hours this evening. Patient was trying to loosen a bolt on a sweeper when his wrench slipped and he caught his hand on a sharp piece of plastic. No history of foreign body paresthesias, significant bleeding, neurological deficits, or other complaints or injuries. He did rinse the laceration sites with tapwater with pressure dressing also placed prior to arrival. The patient denies any chest pain/pressure, heart flutter, dizziness, orthostasis, orthopnea, diaphoresis, recent decreased exercise tolerance, or any other anginal-type symptoms. No recent history of abdominal pain, heartburn, nausea, diarrhea, melena, gross hematochezia, or any food intolerance, including fatty foods, etc.. The patient also denies any recent fever, cough, wheezing, dyspnea, etc.. No history of recent headaches, visual changes, diplopia, change in mental status, or other change in neurological status. The patient is right-handed and has not injured his left hand in the past. Onset: Today Onset Date: 02/03/19 Onset Time: 19:00 Duration: Constant Location: Reports: Upper Extremity, Left. 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 Denies: Allergic Rhinitis, Cataract, Glaucoma, Hard of Hearing, Impaired Vision, Macular Degeneration Cardiovascular History: Reports: None. Denies: Heart Murmur, High Cholesterol, Hypertension Gastrointestinal History: Reports: GERD Musculoskeletal History: Reports: Arthritis, Back Pain, Chronic, Fracture, Neck Pain, Chronic, Osteoarthritis, Other (See Below) Other Musculoskeletal History: Tuft fracture of digit #4 of the left hand on 06/27 Psychiatric History: Reports: Addiction, Anxiety, Depression, Emotional Problems , Psych Hospitalization(s), Other (See Below) Other Psychiatric History: Previous history of alcohol, Ativan, and Xanax abuse as below. History of alcohol abuse since 2002 with apparent previous treatments including last known inpatient treatment for alcohol abuse and his anxiety depressive disorder at [facility] in the fall of 2016. Previous problems with anger management. Endocrine/Metabolic History: Reports: Hypothyroidism Social & Family History - Family History Family Medical History: Noncontributory - Tobacco Use Smoking Status *Q: Former Smoker Tobacco Use Within Last Twelve Months: Snuff/Dip Years of Tobacco use: 12 Packs/Tins Daily: 0.3 Packs/Tins Daily Comment: Patient started chewing tobacco at age 16 and stopped using this in about July 2018 after last ER visit. Used Tobacco, but Quit: Yes Smoking Cessation Information Provided To Patient: No Second Hand Smoke Exposure: No Second Hand Smoke Education Provided: No - Caffeine Use Caffeine Use: Reports: Soda (3 sodas per day.). Denies: Coffee, Energy Drinks, Tea - Alcohol Use Alcohol Use History: Yes Days Per Week of Alcohol Use: 0 Number of Drinks Per Day Comment: Previous alcohol abuse history as above. 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) ED ROS GENERAL - Review of Systems Review Of Systems: Comprehensive ROS is negative, except as noted in HPI. ED EXAM, SKIN/RASH Exam: See Below Exam Limited By: No Limitations General Appearance: Alert, WD/WN, No Apparent Distress, Anxious (Mild) Head: Atraumatic, Normocephalic Neck: Normal Inspection, Supple, Non-Tender, Full Range of Motion. No: Lymphadenopathy (L), Lymphadenopathy (R), Thyromegaly Respiratory/Chest: No Respiratory Distress, Lungs Clear, Normal Breath Sounds, No Accessory Muscle Use, Chest Non-Tender. No: Pleural Rub, Retractions Cardiovascular: Normal Peripheral Pulses, Regular Rate, Rhythm, No Edema, No Gallop, No JVD, No Murmur, No Rub. No: Tachycardia (Resolved tachycardia at time of my exam.), Gallop/S3, Gallop/S4, Friction Rub Peripheral Pulses: 2+: Radial (L), Radial (R) GI/Abdominal: Normal Bowel Sounds, Soft, Non-Tender, No Organomegaly, No Distention, No Abnormal Bruit, No Mass. No: Guarding (Male) Exam: Deferred Rectal (Males) Exam: Deferred Back Exam: Normal Inspection, Full Range of Motion. No: CVA Tenderness (L), CVA Tenderness (R), Muscle Spasm Extremities: Normal Range of Motion, No Pedal Edema, Normal Capillary Refill, Other (3 cm laceration over the extensor surface of digit #2 of the left hand at the distal metacarpal with 2 cm in length laceration over the extensor surface of the distal third metacarpal with additional 1 cm superficial laceration over the radial surface of the distal first metacarpal, which does not require repair.). No: Non-Tender (Mild to moderate tenderness over laceration sites), Joint Swelling, Increased Warmth Neurological: Alert, Oriented, CN II-XII Intact, Normal Cognition, Normal Gait, No Motor/Sensory Deficits Psychiatric: Anxious (Mild). No: Depressed Mood Skin: Wound/Incision (As above). No: Diaphoretic Location, Skin: Upper Extremity, Left Characteristics: Linear, Other (As above) Associated features: Tenderness. No: Warmth, Swelling, Lymphangitis Lymphatic: No Adenopathy ED SKIN PROCEDURES - Laceration/Wound Repair Left Digit - 2nd (Index) Appearance: Subcutaneous, Clean Distal NVT: Neuro & Vascular Intact, No Tendon Injury Anesthetic Type: Local Local Anesthesia - Lidocaine (Xylocaine): 1% Plain Local Anesthetic Volume: 5cc Skin Prep: Providone-Iodine (Betadine) (Including soaking) Saline Irrigation (cc's): 0 Exploration/Debridement/Repair: Wound Explored, In a Bloodless Field, Explored to Base, No Foreign Material Found Closed with: Sutures Lac/Wound length In cm: 3.0 Suture Size: 4-0 # of Sutures: 7 Suture Type: Nylon, Interrupted, Simple Drain Placement: No Sterile Dressing Applied: Nurse Tetanus Status Addressed: Yes Complications: No Left Dorsal Digit - 3rd (Middle) Appearance: Subcutaneous, Clean Anesthetic Type: Local Local Anesthesia - Lidocaine (Xylocaine): 1% Plain Local Anesthetic Volume: 3cc Skin Prep: Providone-Iodine (Betadine) (Including soaking) Saline Irrigation (cc's): 0 Exploration/Debridement/Repair: Wound Explored, In a Bloodless Field, Explored to Base, No Foreign Material Found Closed with: Sutures Lac/Wound length In cm: 2.0 Suture Size: 4-0 # of Sutures: 4 Suture Type: Nylon, Interrupted, Simple Drain Placement: No Sterile Dressing Applied: Nurse Tetanus Status Addressed: Yes Complications: No Course - Vital Signs Last Recorded V/S: Last Vital Signs Temp 36.9 C 02/03/19 19:55 Pulse 115 H 02/03/19 20:47 Resp 20 02/03/19 20:47 BP 152/103 H 02/03/19 20:47 Pulse Ox 99 02/03/19 20:31 Vital Signs - 24 hr 02/03/19 02/03/19 02/03/19 19:55 20:20 20:31 Temperature [ 36.9 C Temporal] Pulse, 117 H 114 H 112 H Peripheral [ Pulse Oximetry] Respiratory 19 Rate Blood Pressure 156/106 H 136/108 H 144/101 H [Left Upper Arm ] O2 Sat by Pulse 97 99 Oximetry 02/03/19 20:47 Temperature [ Temporal] Pulse, 115 H Peripheral [ Pulse Oximetry] Respiratory 20 Rate Blood Pressure 152/103 H [Left Upper Arm ] O2 Sat by Pulse Oximetry - Orders/Labs/Meds Orders: Active Orders 24 hr Category Date Time Status Obtain Past Medical Record [OM.PC] Routine Oth 02/03/19 20:30 Active Labs: None Meds: Medications Discontinued Medications Generic Name Dose Route Start Last Admin Trade Name Freq PRN Reason Stop Dose Admin Lidocaine HCl 5 ml 02/03/19 20:30 02/03/19 20:51 Xylocaine-Mpf 1% INJECT 02/03/19 20:31 5 ml ONETIME ONE Administration Lidocaine HCl 5 ml 02/03/19 20:31 02/03/19 20:51 Xylocaine-Mpf 1% INJECT 02/03/19 20:32 5 ml ONETIME ONE Administration Neomycin/Polymyxin/Bacitracin 1 each 02/03/19 20:31 02/03/19 20:52 Triple Antibiotic Oint TOP 02/03/19 20:32 1 each ONETIME ONE Administration - Radiology Interpretation Free Text/Narrative:: None Departure - Departure Time of Disposition: 21:36 Disposition: Home, Self-Care 01 Condition: Good Clinical Impression: Mixed anxiety depressive disorder, Laceration, Hypothyroidism (acquired), Elevated blood pressure reading, Peptic reflux disease Osteoarthritis Qualifiers: Osteoarthritis location: multiple joints Osteoarthritis type: primary Qualified Code(s): M15.0 - Primary generalized (osteo)arthritis - Discharge Information *PRESCRIPTION DRUG MONITORING PROGRAM REVIEWED*: Not Applicable *COPY OF PRESCRIPTION DRUG MONITORING REPORT IN PATIENT CHARMAINE: Not Applicable Instructions: Laceration Care, Adult, [id number], Stitches, [place], or Adhesive Wound Closure, [id number] Referrals: Dano Cormier PA-C [Primary Care Provider] - Forms: ED Department Discharge Additional Instructions: 1. Followup with your regular provider in 10-14 days as directed for reevaluation, suture removal, and discussion of previously diagnosed hypothyroidism. Bring these discharge instructions with you to that visit. 2. Consider repeat TSH, if this has not been conducted recently. 3. Blood pressure and pulse check by the [facility] nurse prior to each shift with this record to be brought to your follow-up visit. Consider medications depending on these readings. 4. Tylenol 650 mg by mouth every 4 hours and/or OTC ibuprofen 2-3 tabs by mouth every 6 hours with food as directed./needed. You may stagger these medications for 48-72 hours only, which essentially means that you are receiving a pain medication about every 2 hours. 5. Antibacterial soap wash/soak with subsequent antibacterial dressing such as Neosporin, etc. as directed 2 times per day until the wound or laceration site completely heals. Keep the area clean and dry with activity restrictions as discussed. Never use hydrogen peroxide for wound care. 6. Activity restrictions as discussed including 10 pound lifting restriction of the left hand 7. Work excuse- See Form 8. Immediately after this visit verify that your cellular telephone's voicemail has been activated and is empty. Also verify that your home telephone 's answering machine is operating properly and has space to receive messages. Note that it is sometimes necessary for us to be able to contact you at a later date to discuss your medical care. 9. Please remember that we are ALWAYS here for you and want to answer any questions you may have. Feel free to call the hospital any time and we call you back [email or web address]. Sepsis Event Note - Evaluation Sepsis Screening Result: No Definite Risk - Focused Exam Vital Signs: Vital Signs Temp Pulse Resp BP Pulse Ox 02/03/19 20:47 115 H 20 152/103 H 02/03/19 20:31 112 H 144/101 H 99 02/03/19 20:20 114 H 136/108 H 02/03/19 19:55 36.9 C 117 H 19 156/106 H 97 Date Exam was Performed: 02/03/19 Time Exam was Performed: 23:15 - Problem List & Annotations (1) Hand laceration SNOMED Code(s): 098668688 Code(s): S61.419A - LACERATION WITHOUT FOREIGN BODY OF UNSP HAND, INIT ENCNTR Status: Acute Priority: High Current Visit: Yes Onset Date: 02/03 Annotation/Comment:: Excellent results with laceration repairs as above. Wound care, activity restrictions, etc. were extensively discussed. [place] work excuse and Workmen's Compensation forms were completed. He did receive a TdAP in this emergency room on 08/15/18. Qualifiers: Encounter type: initial encounter Foreign body presence: without foreign body Laterality: left Qualified Code(s): S61.412A - Laceration without foreign body of left hand, initial encounter (2) Elevated blood pressure reading SNOMED Code(s): 57562695 Code(s): R03.0 - ELEVATED BLOOD-PRESSURE READING, W/O DIAGNOSIS OF HTN Status: Acute Priority: High Current Visit: Yes Onset Date: 02/03/19 Annotation/Comment:: Anxiety component today. By patient history he had a normal blood pressure reading earlier today by his regular provider. Daily blood pressure checks through the [facility] nurse with record to be brought to his follow-up visit as per discharge instructions. (3) Mixed anxiety depressive disorder SNOMED Code(s): 892579415 Code(s): F41.8 - OTHER SPECIFIED ANXIETY DISORDERS Status: Chronic Priority: Medium Current Visit: No Annotation/Comment:: Stable by history under current medical therapy. Note history of alcohol and anxiolytic abuse in the past as above with no apparent recent use of these substances. Continue to observe closely by his regular provider. (4) Hypothyroidism (acquired) SNOMED Code(s): 521235800 Code(s): E03.9 - HYPOTHYROIDISM, UNSPECIFIED Status: Acute Priority: Medium Current Visit: Yes Onset Date: 07/16/17 Annotation/Comment:: No current medical therapy with patient not aware of this diagnosis once again despite my discussion of this at time of last ER evaluation on 08/15/18 and despite my ER evaluation with him on 07/16/17 with only mildly elevated TSH at that time. No apparent follow-up once again as previously recommended. TSH recommended as per discharge instructions. Continue to observe closely by his regular provider. (5) Osteoarthritis SNOMED Code(s): 485797734 Code(s): M19.90 - UNSPECIFIED OSTEOARTHRITIS, UNSPECIFIED SITE Status: Chronic Priority: Medium Current Visit: Yes Annotation/Comment:: Stable by history with no history of other injuries. Qualifiers: Osteoarthritis location: multiple joints Osteoarthritis type: primary Qualified Code(s): M15.0 - Primary generalized (osteo)arthritis (6) Peptic reflux disease SNOMED Code(s): 789258018 Code(s): K21.9 - GASTRO-ESOPHAGEAL REFLUX DISEASE WITHOUT ESOPHAGITIS Status: Chronic Priority: Medium Current Visit: Yes Annotation/Comment:: Stable by history with no current medical therapy. - Problem List Review Problem List Initiated/Reviewed/Updated: Yes - My Orders Last 24 Hours: My Active Orders 02/03/19 20:30 Obtain Past Medical Record [OM.PC] Routine - Assessment/Plan Last 24 Hours: My Active Orders 02/03/19 20:30 Obtain Past Medical Record [OM.PC] Routine Assessment:: As above Plan: As above. Extensive precautions were given to the patient, who is in agreement with the treatment plan. See Patient Instructions for further treatment and plan.
[2019-02-03] MEDS: Bacitracin/Neomycin/Polymyxin B Oint 0.9 GM U/D Packet TOP ONE (20:52)
[2019-02-03 23:02] VITALS: BP 152/103; PULSE 115
== END 2019-02-03 21:35 | disposition home or self-care (01) ==
LOC: LL.ED 19:55
DX: S61.211A Laceration without foreign body of left index finger without damage to nail, initial encounter (principal); S61.213A Laceration without foreign body of left middle finger without damage to nail, initial encounter; F41.8 Other specified anxiety disorders; E03.9 Hypothyroidism, unspecified; K21.9 Gastro-esophageal reflux disease without esophagitis; M15.0 Primary generalized (osteo)arthritis; Z87.891 Personal history of nicotine dependence; I10 Essential (primary) hypertension; W26.8XXA Contact with other sharp object(s), not elsewhere classified, initial encounter; Y99.0 Civilian activity done for income or pay
CPT/HCPCS: 12002; 99282-25; J2001

== ENCOUNTER 2019-02-07 23:18 | Emergency (ER) | payer OTHER ==
[2019-02-07 23:33] VITALS: BP 165/82; PULSE 96
--- NOTE | 2019-02-07 23:40 | EDM.PDOC ---
ED HPI GENERAL MEDICAL PROBLEM - General Chief Complaint: Laceration Stated Complaint: Infected Laceration Time Seen by Provider: 02/07/19 23:35 Source of Information: Reports: Patient, Old Records ([facility] chart/EMR) History Limitations: Reports: No Limitations - History of Present Illness INITIAL COMMENTS - FREE TEXT/NARRATIVE: The patient drove himself to the emergency room via private automobile for reevaluation of a Workmen's Compensation injury, which occurred on 02/03/19 with evaluation in this facility at that time by me for laceration repairs. The patient requested to go back to work immediately with no apparent reinjury and the patient following the activity restrictions, wound care instructions, etc. One of the laceration sites apparently dehisced later that day on 02/03 with Steri-Strips applied by the [facility] nurse at that time. At about 11 AM this morning the patient noticed some increased swelling and drainage from one of the laceration sites of his left hand, however no history of fever, etc. Patient did take 400 mg of ibuprofen at 20:00 hours this evening, i.e., about 4 hours prior to tonight's evaluation. No recent history of abdominal pain, heartburn, nausea, diarrhea, melena, gross hematochezia, or any food intolerance , including fatty foods, etc.. The patient also denies any recent cough, wheezing, dyspnea, etc.. Onset: Gradual Onset Date: 02/07/19 Onset Time: 11:00 Duration: Constant, Getting Worse Location: Reports: Upper Extremity, Left Quality: Reports: Same as Previous Episode, Throbbing Severity: Moderate Improves with: Reports: None Worsens with: Reports: None Context: Reports: Trauma (As above) Associated Symptoms: Reports: Fever/Chills. Denies: Confusion, Chest Pain, Cough, Diaphoresis, Headaches, Nausea/Vomiting, Shortness of Breath, Weakness Treatments PRINCIPAL ARCHITECT: Reports: NSAIDS Left Hand Pain Score (Numeric/FACES): 6 - Related Data Allergies Allergy/AdvReac Type Severity Reaction Status Date / Time No Known Allergies Allergy Verified 02/03/19 20:16 Home Meds: Home Meds Gabapentin [Gralise] 900 mg PO Q12HR 08/15/18 [History] QUEtiapine [SEROquel] 100 mg PO BEDTIME 12/14/19 [History] Past Medical History - Past Health History Medical/Surgical History: Denies Medical/Surgical History HEENT History: Reports: None. Denies: Allergic Rhinitis, Cataract, Glaucoma, Hard of Hearing, Impaired Vision, Macular Degeneration Cardiovascular History: Reports: None. Denies: Heart Murmur, High Cholesterol, Hypertension Gastrointestinal History: Reports: GERD Musculoskeletal History: Reports: Arthritis, Back Pain, Chronic, Fracture, Neck Pain, Chronic, Osteoarthritis, Other (See Below) Other Musculoskeletal History: Tuft fracture of digit #4 of the left hand on 06/27. Chronic Right shoulder pain. Neurological History: Reports: Seizure, Other (See Below). Denies: CVA, Headaches, Chronic, Migraines, Neuropathy, Peripheral, TIA Other Neuro History: Possible seizures/pseudoseizures? at age 35 with workup, including EEG and MRI of the brain by patient history, as below. Psychiatric History: Reports: Addiction, Anxiety, Depression, Emotional Problems , Hallucinations, Psych Hospitalization(s), Other (See Below) Other Psychiatric History: Previous history of alcohol, Ativan, and Xanax abuse as below. History of alcohol abuse since 2002 with apparent previous treatments including last known inpatient treatment for alcohol abuse and his anxiety depressive disorder at [facility] in the fall of 2016. Previous problems with anger management and visual hallucinations. Endocrine/Metabolic History: Reports: Hypothyroidism - Past Surgical History Male Surgical History: Reports: Circumcision. Denies: Vasectomy Other Male Surgeries/Procedures: Circumcision as an infant. Vasectomy in 2014. - Past Imaging History Past Imaging History: Reports: EEG (2015 by patient history), MRI (Brain in 2014 by patient history) Social & Family History - Family History Family Medical History: Noncontributory - Tobacco Use Smoking Status *Q: Former Smoker Tobacco Use Within Last Twelve Months: Snuff/Dip Years of Tobacco use: 12 Packs/Tins Daily: 0.3 Packs/Tins Daily Comment: Started chewing tobacco use at age 16 with last use in July 2018. Used Tobacco, but Quit: Yes Smoking Cessation Information Provided To Patient: No Second Hand Smoke Exposure: No Second Hand Smoke Education Provided: No - Caffeine Use Caffeine Use: Reports: Soda (3 sodas per day.). Denies: Coffee, Energy Drinks, Tea - Alcohol Use Alcohol Use History: Yes Days Per Week of Alcohol Use: 0 Number of Drinks Per Day Comment: Note previous alcohol abuse as above. 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 ED EXAM, SKIN/RASH Exam: See Below Exam Limited By: No Limitations General Appearance: Alert, WD/WN, No Apparent Distress, Anxious (Mild) Head: Atraumatic, Normocephalic. No: Facial Swelling, Facial Tenderness, Sinus Tenderness Neck: Normal Inspection, Supple, Non-Tender, Full Range of Motion. No: Lymphadenopathy (L), Lymphadenopathy (R), Thyromegaly Respiratory/Chest: No Respiratory Distress, Lungs Clear, Normal Breath Sounds, No Accessory Muscle Use, Chest Non-Tender. No: Pleural Rub, Retractions Cardiovascular: Normal Peripheral Pulses, Regular Rate, Rhythm, No Edema, No Gallop, No JVD, No Murmur, No Rub. No: Gallop/S3, Gallop/S4 Peripheral Pulses: 2+: Radial (L), Radial (R) GI/Abdominal: Normal Bowel Sounds, Soft, Non-Tender, No Organomegaly, No Distention, No Abnormal Bruit, No Mass. No: Guarding (Male) Exam: Deferred Rectal (Males) Exam: Deferred Back Exam: Normal Inspection, Full Range of Motion. No: CVA Tenderness (L), CVA Tenderness (R) Extremities: Normal Range of Motion, No Pedal Edema, Normal Capillary Refill, Arm Pain (Mild to moderate pain in the left dorsal hand), Increased Warmth ( Mild left dorsal hand), Redness (+1 erythema with moderate swelling of the left dorsal hand with minimal dehiscence of previous radial laceration site secondary to lost sutures with mild purulent drainage and mild lymphangitis extending to the distal third of the left forearm. Additional ulnar laceration of the dorsal surface of the left hand is still intact with no drainage from this area. Negative compartment syndrome.). No: Joint Swelling, Edmond's Sign Neurological: Alert, Oriented, CN II-XII Intact, Normal Cognition, Normal Gait, No Motor/Sensory Deficits Psychiatric: Anxious (Mild), Depressed Mood (Mild to moderate) Skin: Erythema, Increased Warmth, Lymphangitis, Wound/Incision (As above). No: Diaphoretic Location, Skin: Upper Extremity, Left Associated features: Warmth, Tenderness, Swelling, Lymphangitis, Weeping Lymphatic: No Adenopathy Course - Vital Signs Last Recorded V/S: Last Vital Signs Temp 36.8 C 02/07/19 23:20 Pulse 96 02/07/19 23:20 Resp 16 02/07/19 23:20 BP 165/82 H 02/07/19 23:20 Pulse Ox 100 02/07/19 23:20 Vital Signs - 24 hr 02/07/19 23:20 Temperature [ 36.8 C Temporal] Pulse, 96 Peripheral [ Pulse Oximetry] Respiratory 16 Rate Blood Pressure 165/82 H [Right Upper Arm] O2 Sat by Pulse 100 Oximetry - Orders/Labs/Meds Orders: Active Orders 24 hr Category Date Time Status Peripheral IV Care [RC] . DIRECTED Care 02/07/19 23:42 Active Hand 2V Lt [CR] Stat Exams 02/07/19 23:47 Ordered CULTURE WOUND + SMEAR [RM] Stat Lab 02/07/19 23:40 Ordered Bacitracin/Neomycin/Polymyxin [Triple Antibiotic Oint] Med 02/08/19 00:20 Once 1 each TOP ONETIME ONE Sodium Chloride 0.9% [Saline Flush] Med 02/07/19 23:42 Active 10 ml FLUSH ASDIRECTED PRN cefTRIAXone [Rocephin] Med 02/07/19 23:45 Active 2 gm IVPUSH Q24H Obtain Past Medical Record [OM.PC] Routine Oth 02/07/19 23:40 Active Peripheral IV Insertion Adult [OM.PC] Routine Oth 02/07/19 23:42 Ordered Medication Orders Ceftriaxone Sodium (Rocephin) 2 gm IVPUSH Q24H VANGIE Last Admin: 02/08/19 00:11 Dose: 2 gm Neomycin/Polymyxin/Bacitracin (Triple Antibiotic Oint) 1 each TOP ONETIME ONE Stop: 02/08/19 00:21 Sodium Chloride (Saline Flush) 10 ml FLUSH ASDIRECTED PRN PRN Reason: Keep Vein Open Labs: Specimen collected for Gram stain, culture, and sensitivity. Meds: Medications Generic Name Dose Route Start Last Admin Trade Name Freq PRN Reason Stop Dose Admin Ceftriaxone Sodium 2 gm 02/07/19 23:45 02/08/19 00:11 Rocephin IVPUSH 2 gm Q24H VANGIE Administration Neomycin/Polymyxin/Bacitracin 1 each 02/08/19 00:20 Triple Antibiotic Oint TOP 02/08/19 00:21 ONETIME ONE Sodium Chloride 10 ml 02/07/19 23:42 Saline Flush FLUSH ASDIRECTED PRN Keep Vein Open Discontinued Medications Generic Name Dose Route Start Last Admin Trade Name Freq PRN Reason Stop Dose Admin Trimethoprim/Sulfamethoxazole 1 tab 02/07/19 23:43 02/08/19 00:13 Septra Ds PO 02/07/19 23:44 1 tab ONETIME ONE Administration - Radiology Interpretation Free Text/Narrative:: X-rays of the left hand, 2 views, shows evidence of dorsal tissue swelling, however no evidence of foreign body, or, dislocation, etc. Departure - Departure Time of Disposition: 00:46 Disposition: Home, Self-Care 01 Clinical Impression: Elevated blood pressure reading, Mixed anxiety depressive disorder Osteoarthritis Qualifiers: Osteoarthritis location: multiple joints Osteoarthritis type: primary Qualified Code(s): M15.0 - Primary generalized (osteo)arthritis Hand laceration Qualifiers: Encounter type: initial encounter Foreign body presence: without foreign body Laterality: left Qualified Code(s): S61.412A - Laceration without foreign body of left hand, initial encounter Cellulitis Qualifiers: Site of cellulitis: extremity Site of cellulitis of extremity: upper extremity Laterality: left Qualified Code(s): L03.114 - Cellulitis of left upper limb - Discharge Information *PRESCRIPTION DRUG MONITORING PROGRAM REVIEWED*: Not Applicable *COPY OF PRESCRIPTION DRUG MONITORING REPORT IN PATIENT CHARMAINE: Not Applicable Instructions: Cellulitis, Adult, [id number] Referrals: Dano Cormier PA-C [Primary Care Provider] - Forms: ED Department Discharge Additional Instructions: 1. Return to this facility at about noon on 02/08/19 for reevaluation in the emergency room and possible further IV antibiotics, blood work, etc. at that time as discussed. 2. Tylenol 650 mg by mouth every 4 hours and/or OTC ibuprofen 2-3 tabs by mouth every 6 hours with food as directed./needed. You may stagger these medications for 48-72 hours only, which essentially means that you are receiving a pain medication about every 2 hours. 3. Leave tonight's dressing in place until otherwise directed. Thereafter, Antibacterial soap wash/soak with subsequent antibacterial dressing such as Neosporin, etc. as directed 2 times per day until the wound or laceration site completely heals. Keep the area clean and dry with activity restrictions as discussed. Never use hydrogen peroxide for wound care. 4. You may not return to work until released from provider in this facility. 5. Activity restrictions, including strict limited use of the left hand as discussed. 6. Otherwise follow-up recommendations as per discharge instructions from this facility on 02/03/19, including recommended repeat TSH, etc.. 7. Immediately after this visit verify that your cellular telephone's voicemail has been activated and is empty. Also verify that your home telephone 's answering machine is operating properly and has space to receive messages. Note that it is sometimes necessary for us to be able to contact you at a later date to discuss your medical care. 8. Please remember that we are ALWAYS here for you and want to answer any questions you may have. Feel free to call the hospital any time and we call you back DMITRY. Sepsis Event Note - Evaluation Sepsis Screening Result: No Definite Risk - Focused Exam Vital Signs: Vital Signs Temp Pulse Resp BP Pulse Ox 02/07/19 23:20 36.8 C 96 16 165/82 H 100 Date Exam was Performed: 02/08/19 Time Exam was Performed: 00:21 - Problem List & Annotations (1) Hand laceration SNOMED Code(s): 268724575 Code(s): S61.419A - LACERATION WITHOUT FOREIGN BODY OF UNSP HAND, INIT ENCNTR Status: Acute Priority: High Current Visit: Yes Onset Date: 02/03 Annotation/Comment:: Note minor wound dehiscence as above with secondary moderate cellulitis. Excellent results with laceration repairs on 02/03/19. Wound care, activity restrictions, etc. were extensively discussed and are to be continued after dressing change and emergency room reevaluation in this facility later today as per discharge instructions. Antonio work excuse and Workmen's Compensation forms were once again completed today. He did receive a TdAP in this emergency room on 08/15/18. Qualifiers: Encounter type: initial encounter Foreign body presence: without foreign body Laterality: left Qualified Code(s): S61.412A - Laceration without foreign body of left hand, initial encounter (2) Cellulitis SNOMED Code(s): 350740111 Code(s): L03.90 - CELLULITIS, UNSPECIFIED Status: Acute Current Visit: Yes Onset Date: ~02/07/19 Annotation/Comment:: As above. Secondary to clinical findings the patient is at risk for development of compartment syndrome , which is not present today. Aggressive treatment in the emergency room, including extensive soaking and washing of his left hand with Betadine solution today. High-dose IV Rocephin therapy and oral Bactrim DS to cover possible MRSA were given today as above with close follow-up in this facility in 12 hours for possible repeat IV antibiotic therapy. Consider CBC, etc., if fever occurs and/ or depending on his clinical course. Inpatient IV antibiotic therapy is not indicated at this time. Specimen collected for Gram stain culture and sensitivity. Patient may not return to work until released by providers from this facility as per discharge instructions. Compliance with follow-up visit was strongly encouraged. Qualifiers: Site of cellulitis: extremity Site of cellulitis of extremity: upper extremity Laterality: left Qualified Code(s): L03.114 - Cellulitis of left upper limb (3) Elevated blood pressure reading SNOMED Code(s): 15042369 Code(s): R03.0 - ELEVATED BLOOD-PRESSURE READING, W/O DIAGNOSIS OF HTN Status: Acute Priority: High Current Visit: Yes Onset Date: 02/03/19 Annotation/Comment:: Multiple previous elevated blood pressures based on review of our EMR with patient denying any history of hypertension. Note anxiety component today and in the past. By patient history he had a normal blood pressure reading on 02/03/19 by his regular provider. Continue Daily blood pressure checks through the [facility] nurse with record to be brought to his follow -up visit as per discharge instructions on 02/03/19. (4) Hypothyroidism (acquired) SNOMED Code(s): 637412602 Code(s): E03.9 - HYPOTHYROIDISM, UNSPECIFIED Status: Acute Priority: Medium Current Visit: Yes Onset Date: 07/16/17 Annotation/Comment:: No current medical therapy with patient not aware of this diagnosis once again despite my discussion of this at time of last ER evaluation on 08/15/18 and despite my ER evaluation with him on 07/16/17 with only mildly elevated TSH at that time. No apparent follow-up once again as previously recommended. TSH recommended as per discharge instructions. Continue to observe closely by his regular provider. (5) Mixed anxiety depressive disorder SNOMED Code(s): 834297222 Code(s): F41.8 - OTHER SPECIFIED ANXIETY DISORDERS Status: Chronic Priority: Medium Current Visit: Yes Annotation/Comment:: Moderate control today secondary to his apparently wishing to initiate divorce proceedings. Emotional support was provided. Close follow-up by his regular providers was strongly encouraged with possible additional counseling, change of his medical therapy, etc. Note history of alcohol and anxiolytic abuse in the past as above with no apparent recent use of these substances. Continue to observe closely by his regular provider. (6) Osteoarthritis SNOMED Code(s): 928655617 Code(s): M19.90 - UNSPECIFIED OSTEOARTHRITIS, UNSPECIFIED SITE Status: Chronic Priority: Medium Current Visit: Yes Annotation/Comment:: Stable by history with no history of other injuries at time of 02/03/19 Workmen's Compensation injury. Qualifiers: Osteoarthritis location: multiple joints Osteoarthritis type: primary Qualified Code(s): M15.0 - Primary generalized (osteo)arthritis - Problem List Review Problem List Initiated/Reviewed/Updated: Yes - My Orders Last 24 Hours: My Active Orders 02/07/19 23:40 CULTURE WOUND + SMEAR [RM] Stat Obtain Past Medical Record [OM.PC] Routine 02/07/19 23:42 Peripheral IV Care [RC] . DIRECTED Sodium Chloride 0.9% [Saline Flush] 10 ml FLUSH ASDIRECTED PRN Peripheral IV Insertion Adult [OM.PC] Routine 02/07/19 23:45 cefTRIAXone [Rocephin] 2 gm IVPUSH Q24H 02/07/19 23:47 Hand 2V Lt [CR] Stat 02/08/19 00:20 Bacitracin/Neomycin/Polymyxin [Triple Antibiotic Oint] 1 each TOP ONETIME ONE - Assessment/Plan Last 24 Hours: My Active Orders 02/07/19 23:40 CULTURE WOUND + SMEAR [RM] Stat Obtain Past Medical Record [OM.PC] Routine 02/07/19 23:42 Peripheral IV Care [RC] . DIRECTED Sodium Chloride 0.9% [Saline Flush] 10 ml FLUSH ASDIRECTED PRN Peripheral IV Insertion Adult [OM.PC] Routine 02/07/19 23:45 cefTRIAXone [Rocephin] 2 gm IVPUSH Q24H 02/07/19 23:47 Hand 2V Lt [CR] Stat 02/08/19 00:20 Bacitracin/Neomycin/Polymyxin [Triple Antibiotic Oint] 1 each TOP ONETIME ONE Assessment:: As above Plan: As above. Extensive precautions were given to the patient, who is in agreement with the treatment plan. See Patient Instructions for further treatment and plan. NOTE: Note DUAL accounts in our EMR with both accounts reviewed by me today. Incorrect account number [id number] should be combined with the correct account number of [id number].
[2019-02-07] MEDS ORDERED: Sodium Chloride 0.9% 10 ML Syringe FLUSH PRN (23:42)
[2019-02-07] MEDS ORDERED: Sulfamethoxazole/Trimethoprim 800-160 MG Tab PO ONE (23:43)
[2019-02-07] MEDS ORDERED: cefTRIAXone 2 GM Vial IVPUSH SCH (23:45)
[2019-02-08] MEDS ORDERED: Bacitracin/Neomycin/Polymyxin B Oint 0.9 GM U/D Packet TOP ONE (00:20)
== END 2019-02-08 00:45 | disposition home or self-care (01) ==
LOC: LL.ED 23:18
DX: S61.412A Laceration without foreign body of left hand, initial encounter (principal); L03.114 Cellulitis of left upper limb; R03.0 Elevated blood-pressure reading, without diagnosis of hypertension; F41.8 Other specified anxiety disorders; M15.0 Primary generalized (osteo)arthritis; Z87.891 Personal history of nicotine dependence; X58.XXXA Exposure to other specified factors, initial encounter; Y99.0 Civilian activity done for income or pay
CPT/HCPCS: 73120-LT; 87070; 87186; 87205; 96374; 99283-25; A9270-GY; J0696

== ENCOUNTER 2019-02-08 13:11 | Emergency (ER) | payer BC, OTHER ==
[2019-02-08 13:27] VITALS: BP 138/95; PULSE 104
[2019-02-08] MEDS ORDERED: cefTRIAXone 1 GM in Sodium Chloride 0.9% 100 ML IV ONE (13:40)
--- NOTE | 2019-02-08 13:41 | EDM.PDOC ---
ED HPI GENERAL MEDICAL PROBLEM - General Chief Complaint: General Stated Complaint: left hand wound recheck Time Seen by Provider: 02/08/19 13:35 Source of Information: Reports: Patient, Old Records History Limitations: Reports: No Limitations - History of Present Illness INITIAL COMMENTS - FREE TEXT/NARRATIVE: Recheck of left hand. Seen last night for cellulitis that developed after wound dehiscence of previous laceration experienced. Received IV Rocephin and Bactrim DS. Wound culture collected last night and is pending. Patient reports much less heat/redness at this time compared to last night. Improving. No fevers. No other reported changes. - Related Data Allergies Allergy/AdvReac Type Severity Reaction Status Date / Time No Known Drug Allergies Allergy Other Verified 02/08/19 13:18 Home Meds: Home Meds Gabapentin [Gralise] 900 mg PO Q12HR 08/15/18 [History] Gabapentin [Neurontin] 900 mg PO BID 01/14/19 [History] OLANZapine [Olanzapine] 7.5 mg PO BEDTIME 01/14/19 [History] QUEtiapine [SEROquel] 100 mg PO BEDTIME 02/07/19 [History] Sulfamethoxazole/Trimethoprim [Septra DS] 1 each PO Q12H #14 tab 02/08/19 [Rx] Past Medical History - Past Health History Medical/Surgical History: Denies Medical/Surgical History HEENT History: Reports: None, Other (See Below) Cardiovascular History: Reports: None Respiratory History: Reports: None Gastrointestinal History: Reports: GERD, None Genitourinary History: Reports: None Musculoskeletal History: Reports: Arthritis, Back Pain, Chronic, Fracture, Neck Pain, Chronic, Other (See Below), Osteoarthritis Other Musculoskeletal History: Tuft fracture of digit #4 of the left hand on 06/27. Chronic Right shoulder pain. Neurological History: Reports: Other (See Below), Seizure Other Neuro History: Possible seizures/pseudoseizures? at age 35 with workup, including EEG and MRI of the brain by patient history, as below. Psychiatric History: Reports: Addiction, Anxiety, Bipolar, Depression, Emotional Problems, Hallucinations, Mood Swings, Other (See Below), Panic Attack , Psych Hospitalization(s), Schizophrenia Other Psychiatric History: Previous history of alcohol, Ativan, and Xanax abuse as below. History of alcohol abuse since 2002 with apparent previous treatments including last known inpatient treatment for alcohol abuse and his anxiety depressive disorder at [facility] in [place] in the fall of 2016. Previous problems with anger management and visual hallucinations. Endocrine/Metabolic History: Reports: Hypothyroidism, None Immunologic History: Reports: None Oncologic (Cancer) History: Reports: None - Past Surgical History Head Surgeries/Procedures: Reports: None Male Surgical History: Reports: Circumcision Other Male Surgeries/Procedures: Circumcision as an . Vasectomy in 2014. - Past Imaging History Past Imaging History: Reports: CAT Scan, EEG, MRI Social & Family History - Family History Family Medical History: Noncontributory - Caffeine Use Caffeine Use: Reports: Soda (3 sodas per day.). 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 ED EXAM, GENERAL - Physical Exam Exam: See Below General Appearance: Alert, WD/WN, No Apparent Distress Eye Exam: Bilateral Eye: EOMI, PERRL Throat/Mouth: Normal Lips, Normal Voice, No Airway Compromise Head: Atraumatic, Normocephalic Neck: Supple Respiratory/Chest: No Respiratory Distress Extremities: Other (Examination of left arm shows mildly swollen left hand/ wrist. Healing laceration on back of hand. Small amount of yellowish clear fluid leaking from an area of the healing wound. Mild erythema. No streaking of redness on forarm. Albe to move joints. ) Neurological: Alert, Oriented, Normal Cognition, Normal Gait Psychiatric: Normal Affect, Normal Mood Skin Exam: Other (see above) Course - Vital Signs Last Recorded V/S: Last Vital Signs Temp 36.9 C 02/08/19 13:26 Pulse 104 H 02/08/19 13:26 Resp 16 02/08/19 13:26 BP 138/95 H 02/08/19 13:26 Pulse Ox 100 02/08/19 13:26 - Orders/Labs/Meds Meds: Medications Discontinued Medications Generic Name Dose Route Start Last Admin Trade Name Freq PRN Reason Stop Dose Admin Ceftriaxone Sodium 1 gm/ 100 mls @ 200 mls/hr 02/08/19 13:40 02/08/19 14:02 Sodium Chloride IV 02/08/19 14:09 200 mls/hr ONETIME ONE Administration Sodium Chloride 250 mls @ 999 mls/hr 02/08/19 13:54 02/08/19 14:02 Normal Saline IV 02/08/19 14:09 999 mls/hr ONETIME ONE Administration Neomycin/Polymyxin/Bacitracin 1 each 02/08/19 14:13 02/08/19 15:30 Triple Antibiotic Oint TOP 02/08/19 14:14 1 each ONETIME ONE Administration - Re-Assessments/Exams Free Text/Narrative Re-Assessment/Exam: 02/08/19 13:51 Patient appears to be improving. Will continue Rocephin and Bactrim. To follow up in ER tomorrow for wound check and another dose of antibiotic. Patient agreeable with plan. Departure - Departure Time of Disposition: 15:30 Disposition: Home, Self-Care 01 Condition: Good Clinical Impression: Cellulitis Qualifiers: Site of cellulitis: extremity Site of cellulitis of extremity: upper extremity Laterality: left Qualified Code(s): L03.114 - Cellulitis of left upper limb - Discharge Information *PRESCRIPTION DRUG MONITORING PROGRAM REVIEWED*: Not Applicable *COPY OF PRESCRIPTION DRUG MONITORING REPORT IN PATIENT CHARMAINE: Not Applicable Prescriptions: Sulfamethoxazole/Trimethoprim [Septra DS] 1 each PO Q12H #14 tab Referrals: PCP,None [Primary Care Provider] - Forms: ED Department Discharge Additional Instructions: Follow up tomorrow at 1pm for recheck of hand and additional antibiotic medication. Start Septra DS one tab every 12 hours. 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 Sepsis Event Note - Evaluation Sepsis Screening Result: No Definite Risk - Focused Exam Vital Signs: Vital Signs Temp Pulse Resp BP Pulse Ox 02/08/19 13:26 36.9 C 104 H 16 138/95 H 100 Date Exam was Performed: 02/08/19 Time Exam was Performed: 21:24
[2019-02-08] MEDS ORDERED: Sodium Chloride 0.9% 250 ML IV ONE (13:54)
[2019-02-08] MEDS ORDERED: Bacitracin/Neomycin/Polymyxin B Oint 0.9 GM U/D Packet TOP ONE (14:13)
--- NOTE | 2019-02-09 14:00 | PCM.SN ---
- Free Text/Narrative Note: Left hand appears improved today. Minimal swelling. Only a trace amount of erythema near laceration. Good ROM. No fevers. Will have patient continue Septra DS BID. Wound culture results still pending. He is to return for wound check at clinic two days from now. Culture results need to be reviewed at that time and antibiotics changed if needed. He is to return if any worsening problems are noted, such as increased pain/swelling/redness/drainage. Patient agreeable with plan. OK to return to work ONLY if he avoids all use of left hand.
== END 2019-02-08 14:35 | disposition home or self-care (01) ==
LOC: LL.ED 13:11
DX: S61.412D Laceration without foreign body of left hand, subsequent encounter (principal); L03.114 Cellulitis of left upper limb; F32.9 Major depressive disorder, single episode, unspecified; Z79.899 Other long term (current) drug therapy; X58.XXXD Exposure to other specified factors, subsequent encounter
CPT/HCPCS: 96365; 99282-25; J0696; J7050